=== PATIENT | female | born 1935 | race African-American/Black ===

== ENCOUNTER 2021-11-04 00:05 | Inpatient (IN) | payer BC, OTHER ==
[~2021-11-04] VITALS: Ht 165.1 cm; Wt 63.5 kg
[2021-11-04] MEDS ORDERED: IV NORMAL SALINE 1000 ML BAG IV ONE (00:30)
[2021-11-04] MEDS ORDERED: ALBUTEROL SULFATE 2.5 MG/3 ML NEBU NEB ONE (00:30)
[2021-11-04] MEDS ORDERED: AZITHROMYCIN IV 500 MG in IV DEXTROSE 5% 250 ML IV ONE (00:30)
[2021-11-04] MEDS ORDERED: CEFTRIAXONE 1 G in IV DEXTROSE 5% 50 ML IV ONE (00:30)
[2021-11-04] MEDS ORDERED: CEFTRIAXONE /D5W 50ML IVPB **ER PYXIS IV ONE (00:33)
[2021-11-04] MEDS ORDERED: AZITHROMYCIN 500MG/ D5W 250ML IVPB **ER PYXIS ONLY IV ONE (00:34)
[2021-11-04] MEDS ORDERED: ALBUTEROL SULFATE 2.5 MG/3 ML NEBU ONE (00:36)
[2021-11-04 01:05] LABS: MEAN CORPUSCULAR HEMOGLOBIN 30.5 uug (24.7-32.8); MEAN CORPUSCULAR VOLUME 91.9 fL (75.5-95.3); PLATELET COUNT (AUTO) 198 K/uL (179-408)
[2021-11-04] MEDS ORDERED: ATOR10TA PO (01:16)
[2021-11-04] MEDS ORDERED: APIX5TAB4 PO (01:16)
[2021-11-04] MEDS ORDERED: DONE5TAB34 PO (01:16)
[2021-11-04] MEDS ORDERED: POTA-194 PO (01:16)
[2021-11-04] MEDS ORDERED: DOCU100C36 PO (01:16)
[2021-11-04] MEDS ORDERED: LEVO25TA9 PO (01:16)
[2021-11-04] MEDS ORDERED: MIRA50TA PO (01:16)
[2021-11-04] MEDS ORDERED: FURO20TA4 PO (01:16)
[2021-11-04 01:37] LABS: CARBON DIOXIDE 37 mmol/L (21-32); CHLORIDE 108 mmol/L (98-107); GLUCOSE 123 mg/dL (74-106); POTASSIUM 4.3 mmol/L (3.5-5.1); UREA NITROGEN, BLOOD 34 mg/dL (7-18)
[2021-11-04] MEDS ORDERED: REMEDY ESSENTIAL ZINC PASTE 113 GM TP PRN (01:45)
[2021-11-04] MEDS ORDERED: ALBUTEROL SULFATE 2.5 MG/3 ML NEBU NEB PRN ×2 (01:45→18:00)
[2021-11-04] MEDS ORDERED: TEMAZEPAM 15 MG CAPSULE PO PRN (01:45)
[2021-11-04] MEDS ORDERED: MORPHINE SULFATE 2 MG/1 ML DISP.SYRIN IV PRN (01:45)
[2021-11-04] MEDS ORDERED: ONDANSETRON 4 MG/2 ML VIAL IV PRN (01:45)
[2021-11-04] MEDS ORDERED: HYDROCODONE/APAP 5-325MG TABLET PO PRN (01:45)
--- NOTE | 2021-11-04 02:00 | NUR ---
Patient's daughter at bedside
[2021-11-04 04:06] LABS: ABG HCO3 30.6 mmol/L; ABG PCO2 66.4 mmHg (35.0-45.0); ABG PH 7.282 (7.350-7.450); ABG PO2 107.3 mmHg (75.0-100.0); ABG SITE LEFT RADIAL; ABG TOTAL HEMOGLOBIN 14.2 G/dL (12.0-16.0); COHb 0.6 % (0.5-1.5); MetHb 0.3 % (0.0-1.5); O2Hb 96.8 % (94.0-97.0); VENT MODE Nasal Cannula
--- NOTE | 2021-11-04 05:39 | NUR ---
Patient will be admitted AM shift
--- NOTE | 2021-11-04 05:39 | NUR ---
Patient will be admitted to TELE room 301-B under Rashad Gallego
--- NOTE | 2021-11-04 06:15 | NUR ---
PATIENT HAD ONE NEB RX IN ER, THEN HAD ABG DONE ON O2 @ 3L/M NC , THEN ORDER FOR BI/PAP V/O DR RONQUILLO, INITIAL SETTINGS, 15/5/ ,R20, FIO2 @ 35, PT NOT VERY AROUSABLE Zafar LAYTON PALM GATHERER , SEMI LETHARGIC, WITH LARGE FULL MASK, RR20/26, HR 80 APPROX.D CALIN PALM GATHERER Addendum: 11/04/21 at 0622 by GABE LAYTON RT Amended: Links added.
[2021-11-04] MEDS: PANTOPRAZOLE SODIUM 40 MG TABLET.DR PO SCH (07:00)
--- NOTE | 2021-11-04 09:04 | NUR ---
Physical therapy staff (x2) came to ER and saw the patient.
--- NOTE | 2021-11-04 09:04 | NUR ---
Les diaz in ED - 11/04/21 at 0910 by RENETTA PT staff x2 came to ER and saww the patient.
[2021-11-04 11:44] VITALS: BP 151/61
[2021-11-04 12:20] VITALS: BP 144/66
--- NOTE | 2021-11-04 14:29 | NUR ---
Admitted patient from ER at 1100H. on o2 at 3L, saturating at 97-98%. confusion noted. skin intact. not in distress. will continue to monitor.
[2021-11-04 17:08] VITALS: BP 146/63
[2021-11-04] MEDS ORDERED: ALBUTEROL SULFATE 8 GM HFA.AER.AD IH PRN (18:00)
[2021-11-04] MEDS: IV D5 1/2 NS 1000 ML 1,000 ML IV SCH (18:34)
[2021-11-04 18:36] LABS: THYROID STIMULATING HORMONE 0.687 mIU/mL (0.358-3.740)
[2021-11-04 18:47] LABS: BILIRUBIN,TOTAL 0.4 mg/dL (0.2-1.0); CREATININE 0.9 mg/dL (0.6-1.3); POTASSIUM 4.4 mmol/L (3.5-5.1); TOTAL PROTEIN, SERUM 6.8 g/dL (6.4-8.2)
--- NOTE | 2021-11-04 19:09 | NUR ---
UA sample sent to the lab as ordered. awaiting result. IV site intact to the right AC, infusing well at 70cc/hr as ordered. MD made aware of admission earlier, seen the patient and orders carried out. will continue to monitor.
[2021-11-04 20:00] VITALS: BP 145/59
[2021-11-04 20:01] LABS: *BILIRUBIN,URIN NEGATIVE (NEGATIVE); *CLARITY,URINE CLEAR (CLEAR); *COLOR,URINE YELLOW (YELLOW); *KETONES,URINE NEGATIVE (NEGATIVE); *UROBILINOGEN,URINE 0.2 E.U./dl (NORMAL); LEUKOCYTE ESTERASE ,URINE NEGATIVE (NEGATIVE); NITRITE, URINE NEGATIVE (NEGATIVE); UGLUCOSE NEGATIVE (NEGATIVE)
[2021-11-04 20:03] LABS: *BLOOD, URINE TRACE (NEGATIVE)
[2021-11-04] MEDS: ATORVASTATIN 10 MG TABLET PO SCH (20:13)
[2021-11-04] MEDS: AMOXICILLIN-CLAVUL 875-125MG TABLET PO SCH (20:14)
[2021-11-04] MEDS: APIXABAN 5 MG TABLET PO SCH (20:15)
[2021-11-04 20:17] LABS: BACTERIA,URINE FEW /HPF (NONE SEEN); RBC,URINE 0-3 /HPF (0-3); SQUAMOUS EPITHELIAL CELL,UR FEW /HPF (NONE SEEN); WBC,URINE 0-3 /HPF (0-3)
[2021-11-05] MEDS ORDERED: CEFTRIAXONE 1 G in IV DEXTROSE 5% 50 ML IV SCH ×2
[2021-11-05 00:37] VITALS: BP 167/87
[2021-11-05] MEDS ORDERED: AZITHROMYCIN IV 500 MG in IV DEXTROSE 5% 250 ML IV SCH (01:00)
[2021-11-05 04:00] VITALS: BP 153/60
[2021-11-05] MEDS: ACETAMINOPHEN 325 MG TABLET PO PRN ×2 (04:15→20:29)
--- NOTE | 2021-11-05 04:15 | NUR ---
Patient noted with elevated temperature. Tylenol PRN given as ordered. Cooling measures provided. will continue to monitor.
[2021-11-05] MEDS: LEVOTHYROXINE SODIUM 50 MCG TABLET PO SCH (06:15)
[2021-11-05] MEDS: PANTOPRAZOLE SODIUM 40 MG TABLET.DR PO SCH (06:15)
--- NOTE | 2021-11-05 06:16 | NUR ---
Unable to give morning meds, patient is pocketing the apple sauce, high risk for aspiration. will endorse for further eval. and for swallow eval. will endorse.
--- NOTE | 2021-11-05 06:44 | NUR ---
Latest temp is 98. no distress noted. kept patient comfortable, on high fowlers. will endorse.
[2021-11-05 07:30] VITALS: BP 114/52
[2021-11-05 07:30] LABS: HEMATOCRIT 38.9 % (31.2-41.9); MEAN CORPUSCULAR HEMOGLOBIN 30.8 uug (24.7-32.8); MEAN CORPUSCULAR VOLUME 92.2 fL (75.5-95.3); PLATELET COUNT (AUTO) 181 K/uL (179-408)
[2021-11-05 07:57] LABS: CREATININE 0.8 mg/dL (0.6-1.3); MAGNESIUM 2.3 mg/dL (1.8-2.4); PHOSPHOROUS 3.6 mg/dL (2.5-4.9); POTASSIUM 3.9 mmol/L (3.5-5.1)
[2021-11-05] MEDS ORDERED: DOCUSATE SODIUM 250 MG CAPSULE PO SCH (09:00)
[2021-11-05] MEDS ORDERED: Medication Not On Formulary EA (Apixaban (Eliquis) 5 MG) PO SCH (09:00)
--- NOTE | 2021-11-05 09:00 | NUR ---
very sleepy on rounds but woke up later, able to give her meds with apple sauce and some of her breakfast PT saw pt, needs attended and safety measures maintained, tele SR BBB, on 2lnc sat at 98%
[2021-11-05] MEDS: IV D5 1/2 NS 1000 ML 1,000 ML IV SCH (09:49)
[2021-11-05] MEDS: AMOXICILLIN-CLAVUL 875-125MG TABLET PO SCH ×2 (09:51→20:29)
[2021-11-05] MEDS: DONEPEZIL 5 MG TABLET PO SCH (09:51)
[2021-11-05] MEDS: FLUTICASONE/VILANTEROL 1 EACH BLST.W.DEV INH SCH (09:51)
[2021-11-05] MEDS: FUROSEMIDE 20 MG TABLET PO SCH (09:51)
[2021-11-05] MEDS: APIXABAN 5 MG TABLET PO SCH ×2 (09:52→20:29)
[2021-11-05] MEDS: MIRALAX 17 GM POWD.PACK PO SCH (09:53)
[2021-11-05] MEDS: DOCUSATE SODIUM 100 MG CAPSULE PO SCH ×2 (09:53→17:38)
[2021-11-05 10:57] LABS: ABG BASE EXCESS 7.2 mmol/L; ABG HCO3 35.9 mmol/L; ABG PCO2 71.2 mmHg (35.0-45.0); ABG PH 7.321 (7.350-7.450); ABG PO2 113.3 mmHg (75.0-100.0); ABG SITE RIGHT RADIAL; ABG TOTAL HEMOGLOBIN 13.8 G/dL (12.0-16.0); COHb 0.9 % (0.5-1.5); MetHb 0.1 % (0.0-1.5); O2Hb 97.3 % (94.0-97.0); VENT MODE Nasal Cannula
--- NOTE | 2021-11-05 11:21 | NUR ---
relayed ABG results to Dr Carrillo- pt placed on BIPAP 15/5 rate 20, FIO2 25%, no distress noted
[2021-11-05 11:23] VITALS: BP 137/51
--- NOTE | 2021-11-05 12:40 | NUR ---
Dr Alvarenga informed of consult and relayed ABG results and pt on BIPAP- will see pt, continue to monitor
[2021-11-05 15:55] VITALS: BP 146/67
--- NOTE | 2021-11-05 17:45 | NUR ---
placed on 1l/nc for dinner, sat at 98%, fed slowly and little amount, aspiration precautions observed, needs attended and met, call light within reach, will continue to monitor
--- NOTE | 2021-11-05 18:43 | NUR ---
no distress noted, sat at 98% on 1l/nc, will endorse to next shift
--- NOTE | 2021-11-05 19:30 | NUR ---
Received pt awake, alert and orientedx3. Family at bedside. Pt on 1L on nasal cannula. PT in no acute distress. Iv intact. Safety and comfort provided. Will continue to monitor.
[2021-11-05 20:12] VITALS: BP 126/53
[2021-11-05] MEDS: ATORVASTATIN 10 MG TABLET PO SCH (20:29)
--- NOTE | 2021-11-05 22:26 | NUR ---
PATIENT BACK ON BI/ PAP @ 22:10 WITH SETTINGS, RR20 FIO2 @ 21% , SAT 97% , HR 73. D CALIN WISEMAN Addendum: 11/05/21 at 2233 by GABE LAYTON RT Amended: Links added.
[2021-11-06 00:11] VITALS: BP 122/60
[2021-11-06] MEDS: IV D5 1/2 NS 1000 ML 1,000 ML IV SCH ×2 (01:05→13:09)
[2021-11-06 04:59] VITALS: BP 109/64
--- NOTE | 2021-11-06 05:42 | NUR ---
Pt in no acute distress. Pt on sinus rhythm . PT iv intact. Prescribed medication given and pt tolerated it well . Pt has episodes pt trying to take off her bipap. Pt needs reorientation. Safety and comfort provided. All needs are met.Will endorse to incoming nurse for continuity of care.
[2021-11-06 05:46] LABS: ABG BASE EXCESS 6.6 mmol/L; ABG HCO3 31.7 mmol/L; ABG PCO2 46.6 mmHg (35.0-45.0); ABG PO2 53.6 mmHg (75.0-100.0); ABG SITE RIGHT RADIAL; ABG TOTAL HEMOGLOBIN 13.9 G/dL (12.0-16.0); COHb 1.5 % (0.5-1.5); O2Hb 88.8 % (94.0-97.0); VENT MODE ROOM AIR
[2021-11-06] MEDS: LEVOTHYROXINE SODIUM 50 MCG TABLET PO SCH (06:03)
[2021-11-06] MEDS: PANTOPRAZOLE SODIUM 40 MG TABLET.DR PO SCH (06:03)
--- NOTE | 2021-11-06 07:30 | NUR ---
PATIENT IS ON ROOM AIR AWAKE ALERT ORIENTED AND VERBALLY RESPONDED APPROPRIATELY WHEN SPOKEN TO NO SOB AT THIS TIME REMAIN ON IVF ORDERED WITH NO S/S OF INFILTERATION ON SITE CALL LIGHTS AND PERSOANL BELONGINGS ARE WITHIN EASY REACH MADE COMFORTABLE AND WILL CONTINUE TO OBSERVE.
[2021-11-06] MEDS: DOCUSATE SODIUM 100 MG CAPSULE PO SCH ×2 (09:16→17:44)
[2021-11-06] MEDS: DONEPEZIL 5 MG TABLET PO SCH (09:16)
[2021-11-06] MEDS: FUROSEMIDE 20 MG TABLET PO SCH (09:17)
[2021-11-06] MEDS: FLUTICASONE/VILANTEROL 1 EACH BLST.W.DEV INH SCH (09:17)
[2021-11-06] MEDS: MIRALAX 17 GM POWD.PACK PO SCH (09:17)
[2021-11-06] MEDS: APIXABAN 5 MG TABLET PO SCH ×2 (09:54→20:17)
[2021-11-06] MEDS: CEFEPIME HCL 1 G in IV DEXTROSE 5% 50 ML IV SCH ×2 (10:10→17:48)
--- NOTE | 2021-11-06 10:30 | NUR ---
PHYSICAL THERAPIST HERE SEEN PATIENT AND SHE WAS ABLE TO GET POUT OF BED STOOD AND SIDE STEPPED WITH MAX ASSIST ABD BACK TO BED WILL CONTINUE TO OBSERVE.
--- NOTE | 2021-11-06 11:59 | NUR ---
SHE HAS HER PRIVATE SITTER AT THE BEDSIDE WAS SEEN BY THE SLT WHO STATED THAT PATIENT WAS TOO WEAK FOR THE CURRENT DIET WILL DOWN GRADE AWAITING FOR ORDERS.
[2021-11-06 12:06] VITALS: BP 111/51
[2021-11-06] MEDS: METOPROLOL TARTRATE 25 MG TABLET PO SCH ×2 (12:41→20:19)
--- NOTE | 2021-11-06 13:25 | NUR ---
IVF BAG IS NOT READY TO BE CHANGED AT THE MOMENT WILL CHANGE WHEN EMPTY.
--- NOTE | 2021-11-06 13:58 | NUR ---
DR EDWARD HERE SEEN PATIENT WITH NO NEW ORDERS AT THIS TIME AWARE THAT CT NOT DONE YET PENDING DIALYSIS SCHEDULE.
[2021-11-06 16:09] VITALS: BP 122/57
--- NOTE | 2021-11-06 18:00 | NUR ---
CALLED AND SPOKE WITH DR NAVA NOTIFIED HIM THAT PATIENT IS NOT EATING ENOUGH WITH ORDER TO START MEGACE AND NOTED.
--- NOTE | 2021-11-06 19:30 | NUR ---
Received pt awake, alert and orientedx3. PT in no acute distress. Iv intact.Family at bedside. Safety and comfort provided. Will continue to monitor.
[2021-11-06 20:00] VITALS: BP 134/56
[2021-11-06] MEDS: ATORVASTATIN 10 MG TABLET PO SCH (20:16)
[2021-11-06] MEDS: MEGESTROL ACETATE 400 MG/10 ML LIQUID UDC PO SCH (20:18)
[2021-11-06] MEDS: REMEDY ESSENTIAL ZINC PASTE 113 GM TOP SCH (20:19)
[2021-11-06] MEDS: MAGNESIUM HYDROXIDE 30 ML LIQUID UDC PO PRN (20:19)
[2021-11-07] VITALS: BP 110/64
[2021-11-07] MEDS: CEFEPIME HCL 1 G in IV DEXTROSE 5% 50 ML IV SCH ×3 (01:39→17:02)
[2021-11-07 04:00] VITALS: BP 100/45
--- NOTE | 2021-11-07 06:05 | NUR ---
Patient refused BIPAP. Nurse aware
--- NOTE | 2021-11-07 06:17 | NUR ---
Pt slept intermittently. Pt in no acute distress. Pt has episodes of trying to take off her nasal cannula. Pt on 1L nasal cannulaat 95% Safety and comfort provided. Prescribed medication given and pt tolerated it well. All needs are met. Will endorse to incoming nurse for continuity of care.
[2021-11-07] MEDS: LEVOTHYROXINE SODIUM 50 MCG TABLET PO SCH (06:26)
[2021-11-07] MEDS: PANTOPRAZOLE SODIUM 40 MG TABLET.DR PO SCH (06:26)
--- NOTE | 2021-11-07 07:15 | NUR ---
RECEIVED PATIENT IN BED WITH EYES CLOSED EASILY AROUSABLE ON ROUNDS SHE IS ALERT AND AWARE BUT ALL NEEDS ANTICIPATED AND SATISFIED REQUIRES MAX ASSIST FOR ALL ADL TURNED AND REPOSITIONED Q2H ON O2 AT 1L/M BY NASAL CANULA WITH NO SOB AT THIS TIME.CALL LIGHTS AND PERSONAL BELONGINGS ARE WITHIN EASY REACH AT THIS TIME WILL CONTINUE TO OBSERVE.
[2021-11-07] MEDS: MEGESTROL ACETATE 400 MG/10 ML LIQUID UDC PO SCH ×2 (08:38→20:23)
[2021-11-07 08:44] LABS: HEMATOCRIT 40.5 % (31.2-41.9); MEAN CORPUSCULAR HEMOGLOBIN 30.6 uug (24.7-32.8); MEAN CORPUSCULAR VOLUME 90.8 fL (75.5-95.3); PLATELET COUNT (AUTO) 162 K/uL (179-408)
[2021-11-07 08:47] LABS: ABG HCO3 35.8 mmol/L; ABG PCO2 57.3 mmHg (35.0-45.0); ABG PH 7.413 (7.350-7.450); ABG PO2 77.2 mmHg (75.0-100.0); ABG SITE RIGHT RADIAL; ABG TOTAL HEMOGLOBIN 14.6 G/dL (12.0-16.0); COHb 1.1 % (0.5-1.5); MetHb 0.1 % (0.0-1.5); O2Hb 94.6 % (94.0-97.0); VENT MODE Nasal Cannula
[2021-11-07 08:52] LABS: CREATININE 0.8 mg/dL (0.6-1.3); POTASSIUM 3.8 mmol/L (3.5-5.1)
--- NOTE | 2021-11-07 09:00 | NUR ---
PATIENT NOTED TO BE SLEEPING BUT DIFFICULT TO AROUSE VITALS CHECKED B/P IS 120/62 HR IS 75 O2 SAT AT FIRST WAS 88 ON ONE LITER INCREASED TO 3L NOW ITS 99 DECREASED AGSIN TO 2L NOW ITS 94-95 PERCENT BLOOD SUGAR IS 134 DR HARDIN HERE AND SEEN PATIENT WITH NO NEW ORDERS.
--- NOTE | 2021-11-07 09:15 | NUR ---
PATIENT IS AWAKE WEAK STATED VERY TIRED COOPERATIVE GIVEN ENSURE TOLERATING FAIR MADE COMFORTABLE WILL OBSERVE.
[2021-11-07] MEDS: DONEPEZIL 5 MG TABLET PO SCH (09:53)
[2021-11-07] MEDS: DOCUSATE SODIUM 100 MG CAPSULE PO SCH ×2 (09:53→17:02)
[2021-11-07] MEDS: FUROSEMIDE 20 MG TABLET PO SCH (09:53)
[2021-11-07] MEDS: MIRALAX 17 GM POWD.PACK PO SCH (09:54)
[2021-11-07] MEDS: METOPROLOL TARTRATE 25 MG TABLET PO SCH ×2 (09:54→20:23)
[2021-11-07] MEDS: FLUTICASONE/VILANTEROL 1 EACH BLST.W.DEV INH SCH (09:55)
[2021-11-07] MEDS: REMEDY ESSENTIAL ZINC PASTE 113 GM TOP SCH ×2 (09:58→21:00)
[2021-11-07] MEDS: APIXABAN 5 MG TABLET PO SCH ×2 (09:59→20:22)
[2021-11-07] MEDS ORDERED: POTASSIUM CHLORIDE 20 MEQ TAB.PRT.SR PO ONE (10:30)
--- NOTE | 2021-11-07 10:36 | NUR ---
PATIENT SEEN AND EXAMINED BY DR TSAI WITH NEW ORDERS AND NOTED.
--- NOTE | 2021-11-07 10:45 | NUR ---
IV SITE INFILTERATED PATIENT HAS POOR VENOUS ACCESS WITH MULTIPLE FAILED ATTEMPTS MD AWARE WITH ORDER TO INSERT MID LINE AND NOTED.
--- NOTE | 2021-11-07 10:50 | NUR ---
MID LINE INSERTED TO HER RIGHT UPPER ARM GAUGE 18 AND CONTINUE ON ATB ORDERED.
[2021-11-07] MEDS: ACETAzolamide SODIUM 500 MG VIAL IV SCH (11:42)
[2021-11-07 11:50] VITALS: BP 126/60
[2021-11-07 15:26] VITALS: BP 112/51
--- NOTE | 2021-11-07 18:00 | NUR ---
APPETITE REMAINS POOR ABLE TO TOLERATE ENSURE HAS O2 AT 1L/M BY NASAL CANULA BUT SHE HAS THE TENDENCY TO REMOVE ALERT BUT IS CONFUSED AT TIMES WILL CONTINUE TO OBSERVE.
--- NOTE | 2021-11-07 19:30 | NUR ---
Received pt awake, alert and orientedx3. PT in no acute distress. Iv intact. Safety and comfort provided. Will continue to monitor.
[2021-11-07 19:46] VITALS: BP 117/60
[2021-11-07] MEDS: ATORVASTATIN 10 MG TABLET PO SCH (20:21)
[2021-11-07] MEDS: MAGNESIUM HYDROXIDE 30 ML LIQUID UDC PO PRN (20:23)
--- NOTE | 2021-11-07 20:30 | NUR ---
Family at bedside. Updated the family with pt condition.
[2021-11-07 22:34] VITALS: BP 121/62
[2021-11-08] MEDS: CEFEPIME HCL 1 G in IV DEXTROSE 5% 50 ML IV SCH ×3 (00:12→17:37)
--- NOTE | 2021-11-08 01:09 | NUR ---
nursed called. pt request to have bipap removed. pt on 1 lpm n/c. 0 resp. distress noted.
[2021-11-08 04:17] VITALS: BP 107/55
[2021-11-08] MEDS: PANTOPRAZOLE SODIUM 40 MG TABLET.DR PO SCH (06:02)
[2021-11-08] MEDS: LEVOTHYROXINE SODIUM 50 MCG TABLET PO SCH (06:02)
--- NOTE | 2021-11-08 06:18 | NUR ---
Pt slept intermittently. Pt in no acute distress. Pt on 1l Nasal cannula at 96%. Prescribed medication given and pt tolerated it well.Pt on sinus rhythm. Pt sometimes forgetful and needs reorientation. Safety and comfort provided.All needs are met. Pt vital signs within normal limit. Will endorse to incoming nurse for continuity of care.
[2021-11-08 06:34] LABS: CREATININE 0.9 mg/dL (0.6-1.3); MAGNESIUM 2.7 mg/dL (1.8-2.4); PHOSPHOROUS 3.3 mg/dL (2.5-4.9); POTASSIUM 3.9 mmol/L (3.5-5.1)
[2021-11-08 07:27] LABS: HEMATOCRIT 40.9 % (31.2-41.9); MEAN CORPUSCULAR HEMOGLOBIN 30.6 uug (24.7-32.8); MEAN CORPUSCULAR VOLUME 91.6 fL (75.5-95.3); PLATELET COUNT (AUTO) 172 K/uL (179-408)
--- NOTE | 2021-11-08 08:10 | NUR ---
Received patient from night shift manager. patient is in bed, no distress noted, no pain reported.
[2021-11-08] MEDS: ACETAzolamide SODIUM 500 MG VIAL IV SCH (08:49)
[2021-11-08] MEDS: MIRALAX 17 GM POWD.PACK PO SCH (08:49)
[2021-11-08] MEDS: DOCUSATE SODIUM 100 MG CAPSULE PO SCH ×3 (08:49→16:52)
[2021-11-08] MEDS: DONEPEZIL 5 MG TABLET PO SCH (08:49)
[2021-11-08] MEDS: APIXABAN 5 MG TABLET PO SCH ×2 (08:50→20:41)
[2021-11-08] MEDS: METOPROLOL TARTRATE 25 MG TABLET PO SCH ×3 (08:55→20:41)
[2021-11-08] MEDS: REMEDY ESSENTIAL ZINC PASTE 113 GM TOP SCH ×2 (08:56→20:42)
[2021-11-08] MEDS ORDERED: ACET500V6 IV (09:17)
[2021-11-08] MEDS ORDERED: AMOX-430 PO (09:17)
[2021-11-08] MEDS ORDERED: FLUT1BLS INH (09:17)
[2021-11-08] MEDS: MEGESTROL ACETATE 400 MG/10 ML LIQUID UDC PO SCH ×2 (09:28→20:42)
[2021-11-08] MEDS: FLUTICASONE/VILANTEROL 1 EACH BLST.W.DEV INH SCH (09:29)
[2021-11-08 12:28] VITALS: BP 111/50
[2021-11-08 15:00] VITALS: BP 122/54
--- NOTE | 2021-11-08 16:24 | NUR ---
Patient's daughters at her bedside. The don't want to place her in SNF, they want home health instead. They are asking if the patient can stay here at least 2 more days so they can arrange everything for her at home. Doctor Deon was notified, David was notified.
--- NOTE | 2021-11-08 19:30 | NUR ---
Receive patient lying in bed. AAOx1. In no apparent distress. Appears comfortable. O2 sat at 93% on RA. Right upper arm midline intact and patent. NSR on tele with BBB, HR of 80/min. Needs assessed and attended to. Safety measure initiated and call light within reached.
[2021-11-08 20:00] VITALS: BP 146/69
[2021-11-08] MEDS: ATORVASTATIN 10 MG TABLET PO SCH (20:41)
[2021-11-08 20:52] VITALS: BP 116/62
[2021-11-09] VITALS: BP 115/56
[2021-11-09] MEDS: CEFEPIME HCL 1 G in IV DEXTROSE 5% 50 ML IV SCH ×3 (00:26→17:33)
--- NOTE | 2021-11-09 03:45 | NUR ---
PATIENT BACK ON BI/PAP MACHINE 2 23:50 , SETTINGS, 15/5 R16 , 21% , DOING WELL, WITH CONT PULSE OXY AT BEDSIDE, NO RESP DISTRESS, VERY SLEEPY, SAT 93-94 % ON ROOM AIR ON BI/PAP MACHINE .Zafar LAYTON RCP Addendum: 11/09/21 at 0346 by GABE LAYTON RT Amended: Links added.
[2021-11-09 04:00] VITALS: BP 128/63
--- NOTE | 2021-11-09 05:48 | NUR ---
Patient slept well during the night with BIPAP in place. NSR on tele with BBB and PVC's, HR of 80/min. No adverse reaction noted from IV antibiotics. Needs assessed and attended to. Safety measure maintained and call light within reached.
[2021-11-09] MEDS: LEVOTHYROXINE SODIUM 50 MCG TABLET PO SCH (06:07)
[2021-11-09] MEDS: PANTOPRAZOLE SODIUM 40 MG TABLET.DR PO SCH (06:07)
--- NOTE | 2021-11-09 08:00 | NUR ---
Patient telemetry discontinued, telemetry is Sinus rhythm with bundle branch block and PVC's with HR 69 before removal. patient is drowsy but opens eyes and tracks this staff member when speaking. Patient speech is unclear, attempts to say her name only. No SOB, 02 saturation is 95% on RA. NO s/s pf pain or discomfort, HOB up, aspiration precautions followed.
[2021-11-09] MEDS: DONEPEZIL 5 MG TABLET PO SCH (09:11)
[2021-11-09] MEDS: DOCUSATE SODIUM 100 MG CAPSULE PO SCH ×2 (09:11→17:00)
[2021-11-09] MEDS: ACETAzolamide SODIUM 500 MG VIAL IV SCH (09:11)
[2021-11-09] MEDS: MEGESTROL ACETATE 400 MG/10 ML LIQUID UDC PO SCH ×2 (09:14→20:34)
[2021-11-09] MEDS: APIXABAN 5 MG TABLET PO SCH ×2 (09:14→20:12)
[2021-11-09] MEDS: REMEDY ESSENTIAL ZINC PASTE 113 GM TOP SCH ×2 (09:16→21:06)
[2021-11-09] MEDS: MIRALAX 17 GM POWD.PACK PO SCH (09:16)
[2021-11-09] MEDS: METOPROLOL TARTRATE 25 MG TABLET PO SCH ×2 (09:16→20:09)
[2021-11-09] MEDS: FLUTICASONE/VILANTEROL 1 EACH BLST.W.DEV INH SCH (09:17)
--- NOTE | 2021-11-09 10:30 | NUR ---
Patients 2 daughters at bedside, patient is still lethargic, opens eyes but is non verbal. patient and daughters seen by Dr. Mann, questions answered by MD. 02 sats remain stable between 93-96%. No coughing noted, no SOB.
[2021-11-09 11:51] VITALS: BP 109/65
[2021-11-09 16:02] VITALS: BP 109/49
--- NOTE | 2021-11-09 18:40 | NUR ---
Caregiver at bedside until around 1500, patient able to eat one yogurt, one ensure and 40% of her lunch. Patient still remains lethargic, aspiration precautions followed during feeding, supervision provided. 2 daughters at bedside now and state they will try to feed patient slowly and safely if patient awake. 02 sats are 93-94% on ra. Caregiver reports occasional moist cough, patient unable to clear secretions. Lungs are clear upon auscultation. All needs attended, call light within reach.
--- NOTE | 2021-11-09 19:45 | NUR ---
Received patient in bed with eyes closed, easy to arouse alert to self. HOB elevated to facilitate breathing and to prevent aspiration. No noted acute distress, no noted signs of pain or discomfort. Daughters at bed side, fed patient, aspiration precautions observed. No noted coughing at this time.
[2021-11-09 20:00] VITALS: BP 122/57
[2021-11-09] MEDS: ATORVASTATIN 10 MG TABLET PO SCH (20:10)
[2021-11-10] MEDS: CEFEPIME HCL 1 G in IV DEXTROSE 5% 50 ML IV SCH ×2 (00:11→08:12)
[2021-11-10 00:26] VITALS: BP 115/61
[2021-11-10 04:00] VITALS: BP 141/60
--- NOTE | 2021-11-10 04:12 | NUR ---
PATIENT ON ROOM AIR SAT 93-94%, THEN APPROX. 20:45. PT FALLING ASLEEP, PT THEN PLACED BACK ON BI/PAP MACHINE WITH FULL MASK, SETTINGS, 15/5 , R16, 21%, WITH CONT PULSE OXY AT BEDSIDE, WITH SAT 93-94% APPROX, WILL MONITOR CLOSELY. Zafar LAYTON FIRE INSPECTOR Addendum: 11/10/21 at 0414 by GABE LAYTON RT Amended: Links added.
[2021-11-10] MEDS: LEVOTHYROXINE SODIUM 50 MCG TABLET PO SCH (06:00)
[2021-11-10] MEDS: PANTOPRAZOLE SODIUM 40 MG TABLET.DR PO SCH (06:00)
--- NOTE | 2021-11-10 06:21 | NUR ---
Patient slept well. On BIPAP tolerated well. No noted acute distress, no cough or congestion. No noted signs of active bleeding related to use of anticoagulant. Needs assessed and attended to.
--- NOTE | 2021-11-10 07:32 | NUR ---
Patient is sleeping comfortably in bed, able to open eyes and tracks this staff member. Patient is non verbal. No SOB, 02 saturation is 94% on RA. No s/s of pain or discomfort, HOB up, aspiration precautions followed. All needs attended by staff, call light within reach.
[2021-11-10] MEDS: DONEPEZIL 5 MG TABLET PO SCH (08:11)
[2021-11-10] MEDS: DOCUSATE SODIUM 100 MG CAPSULE PO SCH ×2 (08:11→17:00)
[2021-11-10] MEDS: METOPROLOL TARTRATE 25 MG TABLET PO SCH (08:11)
[2021-11-10] MEDS: ACETAzolamide SODIUM 500 MG VIAL IV SCH (08:11)
[2021-11-10] MEDS: MIRALAX 17 GM POWD.PACK PO SCH (08:12)
[2021-11-10] MEDS: MEGESTROL ACETATE 400 MG/10 ML LIQUID UDC PO SCH (08:12)
[2021-11-10] MEDS: APIXABAN 5 MG TABLET PO SCH (08:13)
[2021-11-10] MEDS: REMEDY ESSENTIAL ZINC PASTE 113 GM TOP SCH (08:13)
[2021-11-10] MEDS: FLUTICASONE/VILANTEROL 1 EACH BLST.W.DEV INH SCH (08:13)
[2021-11-10 08:30] VITALS: BP 123/58
--- NOTE | 2021-11-10 14:40 | NUR ---
Patient discharged at this time. Daughter Maris and other daughter at bedside. Explained that 2 nurses signed discharge as we were not sure daughters would arrive on time for transportation. Discharge instructions given to daughters and daughter verbalized understanding. patient will follow all instruction and medications when at home. Will follow up with primary care physician within 2 weeks. patient discharged home with all belongings.
--- NOTE | 2021-11-10 15:05 | NUR ---
Patient being discharged to home via ambulance. Daughters not at bedside. Called Maris and states she is coming now. Patient midline removed to right upper arm without incidence. Patient is lethargic, opens eyes but closes them right away, 02 sats are 93-94%, no SOB, no respiratory distress. Paperwork provided to ambulance and report given. patient unable to sign, 2 nurses signed off discharge paperwork.
[2021-11-10 16:11] VITALS: BP 124/51
== END 2021-11-10 17:40 | disposition home health service (06) | DRG 189 ==
LOC: ER 00:34 → TELE3 10:31 → MEDSURG3 11-09 08:10
PROVIDERS: ADMIT Internal Medicine; ATTEND Internal Medicine
PROC: 5A09357 Assistance with Respiratory Ventilation, Less than 24 Consecutive Hours, Continuous Positive Airway Pressure (ICD-10-PCS; principal; 2021-11-04)
PROC: 05H533Z Insertion of Infusion Device into Right Subclavian Vein, Percutaneous Approach (ICD-10-PCS; 2021-11-07)
PROC: B546ZZA Ultrasonography of Right Subclavian Vein, Guidance (ICD-10-PCS; 2021-11-07)
DX: J96.22 Acute and chronic respiratory failure with hypercapnia (principal); J15.9 Unspecified bacterial pneumonia; G93.41 Metabolic encephalopathy; R53.2 Functional quadriplegia; E44.0 Moderate protein-calorie malnutrition; I47.2 Ventricular tachycardia; J98.11 Atelectasis; E87.0 Hyperosmolality and hypernatremia; J96.21 Acute and chronic respiratory failure with hypoxia; Z20.822 Contact with and (suspected) exposure to COVID-19; Z68.23 Body mass index [BMI] 23.0-23.9, adult; E03.9 Hypothyroidism, unspecified; E78.5 Hyperlipidemia, unspecified; E86.0 Dehydration; Z86.718 Personal history of other venous thrombosis and embolism; Z79.01 Long term (current) use of anticoagulants; R62.7 Adult failure to thrive; F03.90 Unspecified dementia, unspecified severity, without behavioral disturbance, psychotic disturbance, mood disturbance, and anxiety; F09 Unspecified mental disorder due to known physiological condition; I10 Essential (primary) hypertension; R53.1 Weakness
CPT/HCPCS: 36415; 36600; 71045; 83605; 83735; 84100; 84443; 84484; 85025; 87040; 93005; 93307; 94640; 94660; 94760; 97161; 97535-GO-CO; A4663; G0378; J0456; J0692; J0696; J1120; J7040; J7042; J7050; J8999